=== PATIENT | male | born 1950 | race Caucasian/White ===

== ENCOUNTER 2018-08-24 20:22 | Inpatient (IN) | payer MEDICARE, BC ==
[~2018-08-24] VITALS: Ht 180.3 cm; Wt 81.7 kg
[~2018-08-24 20:22] MED LIST: AMLO-150 PO; DOCU-131 PO; HUM100VI SC; INSU100I13 SQ-INSULIN; PANT40VI IVPush; POLY17PO5 PO; SIME80TA16 PO
[2018-08-24] MEDS ORDERED: SODIUM CHLORIDE 0.9% 1,000 ML IV ONE (20:37)
[2018-08-24] MEDS ORDERED: ONDANSETRON 2MG/ML, 2ML ONE (20:49)
[2018-08-24] MEDS ORDERED: SODIUM CHLORIDE FLUSH 10ML SYR IVF ONE (21:00)
[2018-08-24] MEDS ORDERED: SODIUM CHLORIDE 0.9% 1,000ML IVBOLUS ONE (21:00)
[2018-08-24] MEDS ORDERED: ONDANSETRON 2MG/ML, 2ML IVPush ONE (21:00)
[2018-08-24 21:22] LABS: MEAN CORPUSCULAR HEMOGLOBIN 32.5 pg (27.5-34.5); MEAN CORPUSCULAR VOLUME 95.7 fL (81-97); MEAN PLATELET VOLUME 9.3 fL (7.4-10.4); PLATELET COUNT 276 x10^3/uL (130-400); RED CELL DISTRIBUTION WIDTH 14.6 % (9.4-14.8)
[2018-08-24 21:34] LABS: ALANINE AMINOTRANSFERASE 23 U/L (12-78); ALBUMIN 3.5 g/dL (3.4-5.0); ANION GAP 10 mmol/L (5-15); CALCIUM 9.1 mg/dL (8.5-10.1); CHLORIDE 105 mmol/L (98-107); CREATININE 1.67 mg/dL (0.7-1.3); MD YES
[2018-08-24 21:37] LABS: <PLATELET ESTIMATE> ADEQUATE; <PLT MORPHOLOGY> NORMAL PLT MORPH; <RBC MORPHOLOGY> NORMAL; BAND#(MANUAL) 0.56 x10^3/uL; BANDS%(MANUAL) 4 % (0-7); LYMPH#(MANUAL) 0.28 x10^3/uL (1-3.4); LYMPHS% (MANUAL) 2 % (22-44); SEG#(MANUAL) 13.25 x10^3/uL (1.8-6.8); SEGS% (MANUAL) 94 % (42-75)
[2018-08-24 21:38] LABS: ALKALINE PHOSPHATASE 81 U/L (45-117); BILIRUBIN,TOTAL 0.9 mg/dL (0.2-1.0); TOTAL PROTEIN 6.7 g/dL (6.4-8.2); TROPONIN I < 0.015 ng/mL (0.000-0.045)
[2018-08-24 22:01] LABS: MICROSCOPIC NOT IND
[2018-08-24 22:04] LABS: ACETONE, SERUM Moderate(40mg/dL) mg/dL (Negative)
[2018-08-24 22:12] LABS: CULTURE INDICATED? NO
[2018-08-24] MEDS ORDERED: SODIUM CHLORIDE FLUSH 10ML SYR IVF PRN (23:00)
[2018-08-24] MEDS ORDERED: BISACODYL 10 MG SUPP PR PRN (23:30)
[2018-08-24] MEDS ORDERED: ONDANSETRON ODT 4 MG PO PRN (23:30)
[2018-08-24] MEDS ORDERED: ACETAMINOPHEN 325 MG TABLET PO PRN (23:30)
[2018-08-24 23:36] LABS: HEMOGLOBIN A1C 7.8 % (4.2-6.3)
[2018-08-24 23:58] VITALS: BP 115/66
[2018-08-25 01:15] VITALS: BP 121/69
[2018-08-25] MEDS: SODIUM CHLORIDE 0.9% 1,000 ML IV SCH ×3 (01:42→21:56)
[2018-08-25] MEDS: HEPARIN 5,000 UNITS/ML, 1ML SQ SCH ×3 (03:41→20:11)
[2018-08-25] MEDS: INSULIN LISPRO 100 UNITS/ML, PEN SQ-INSULIN SCH ×4 (03:41→21:53)
[2018-08-25 04:24] VITALS: BP 99/54
[2018-08-25 05:48] LABS: MEAN CORPUSCULAR HEMOGLOBIN 32.5 pg (27.5-34.5); MEAN CORPUSCULAR HGB CONC 34.2 g/dL (33.2-36.2); MEAN CORPUSCULAR VOLUME 95.1 fL (81-97); MEAN PLATELET VOLUME 9.6 fL (7.4-10.4); PLATELET COUNT 247 x10^3/uL (130-400); RED CELL DISTRIBUTION WIDTH 14.8 % (9.4-14.8)
[2018-08-25 05:54] LABS: CHLORIDE 103 mmol/L (98-107)
[2018-08-25 06:04] LABS: ALANINE AMINOTRANSFERASE 22 U/L (12-78); ALKALINE PHOSPHATASE 72 U/L (45-117); ANION GAP 11 mmol/L (5-15); BILIRUBIN,TOTAL 0.9 mg/dL (0.2-1.0); CALCIUM 7.8 mg/dL (8.5-10.1); CREATININE 1.67 mg/dL (0.7-1.3); TOTAL PROTEIN 5.7 g/dL (6.4-8.2)
[2018-08-25 06:12] LABS: BASOPHILS % (AUTO) 0 % (0-1); EOSINOPHILS % (AUTO) 0 % (1-7); LYMPHOCYTES # (AUTO) 0.27 x10^3/uL (1-3.4); LYMPHOCYTES % (AUTO) 3 % (22-44); MD SCAN; MONOCYTES # (AUTO) 0.34 x10^3/uL (0.2-0.8); MONOCYTES % (AUTO) 3 % (2-9); NEUTROPHILS # (AUTO) 9.48 x10^3/uL (1.8-6.8); NEUTROPHILS % (AUTO) 94 % (42-75)
[2018-08-25 06:45] VITALS: BP 102/51
[2018-08-25] MEDS: INSULIN GLARGINE 100 UNITS/ML, PEN SQ-INSULIN SCH ×2 (07:30→21:53)
[2018-08-25] MEDS ORDERED: SODIUM CHLORIDE 0.9% 1,000 ML IV SCH (07:30)
[2018-08-25] MEDS ORDERED: SODIUM POLYSTYRENE SULFONATE ORAL SUSP PO ONE (07:30)
[2018-08-25] MEDS: LEVOTHYROXINE 50 MCG TABLET PO SCH (07:46)
[2018-08-25] MEDS ORDERED: INSULIN GLARGINE 100 UNITS/ML, PEN SQ-INSULIN SCH (08:00)
[2018-08-25] MEDS: AMLODIPINE 5 MG TABLET PO SCH (09:00)
[2018-08-25 11:01] LABS: ANION GAP 10 mmol/L (5-15); CALCIUM 8.2 mg/dL (8.5-10.1); CHLORIDE 105 mmol/L (98-107); CREATININE 1.73 mg/dL (0.7-1.3)
[2018-08-25 12:41] VITALS: BP 109/54
[2018-08-25 20:12] VITALS: BP 104/52
[2018-08-26 01:26] VITALS: BP 94/50
[2018-08-26] MEDS: INSULIN LISPRO 100 UNITS/ML, PEN SQ-INSULIN SCH ×2 (03:26→09:06)
[2018-08-26] MEDS: HEPARIN 5,000 UNITS/ML, 1ML SQ SCH ×2 (03:30→03:31)
[2018-08-26] MEDS: SODIUM CHLORIDE 0.9% 1,000 ML IV SCH (04:39)
[2018-08-26 05:45] LABS: CHLORIDE 109 mmol/L (98-107)
[2018-08-26 05:50] LABS: ALANINE AMINOTRANSFERASE 19 U/L (12-78); ALBUMIN 2.5 g/dL (3.4-5.0); ALKALINE PHOSPHATASE 63 U/L (45-117); ANION GAP 6 mmol/L (5-15); BILIRUBIN,TOTAL 0.5 mg/dL (0.2-1.0); CALCIUM 8.3 mg/dL (8.5-10.1); TOTAL PROTEIN 4.9 g/dL (6.4-8.2)
[2018-08-26 06:01] LABS: BASOPHILS # (AUTO) 0.02 x10^3/uL (0-0.1); BASOPHILS % (AUTO) 0 % (0-1); EOSINOPHILS # (AUTO) 0.12 x10^3/uL (0-0.4); EOSINOPHILS % (AUTO) 2 % (1-7); LYMPHOCYTES # (AUTO) 1.12 x10^3/uL (1-3.4); LYMPHOCYTES % (AUTO) 20 % (22-44); MD NO; MEAN CORPUSCULAR HEMOGLOBIN 32.8 pg (27.5-34.5); MEAN CORPUSCULAR HGB CONC 34.4 g/dL (33.2-36.2); MEAN CORPUSCULAR VOLUME 95.3 fL (81-97); MEAN PLATELET VOLUME 9.6 fL (7.4-10.4); MONOCYTES # (AUTO) 0.67 x10^3/uL (0.2-0.8); MONOCYTES % (AUTO) 12 % (2-9); NEUTROPHILS # (AUTO) 3.64 x10^3/uL (1.8-6.8); NEUTROPHILS % (AUTO) 65 % (42-75); PLATELET COUNT 214 x10^3/uL (130-400); RED BLOOD COUNT 3.65 x10^6/uL (4.38-5.82); RED CELL DISTRIBUTION WIDTH 14.5 % (9.4-14.8)
[2018-08-26] MEDS: LEVOTHYROXINE 50 MCG TABLET PO SCH (06:12)
[2018-08-26] MEDS ORDERED: LEVO50TA PO (08:16)
[2018-08-26] MEDS ORDERED: ONDA4TAB7 PO (08:16)
[2018-08-26] MEDS ORDERED: INSU100I11 SQ-INSULIN (08:18)
[2018-08-26] MEDS: AMLODIPINE 5 MG TABLET PO SCH (09:00)
== END 2018-08-26 09:30 | disposition home or self-care (01) | DRG 682 ==
LOC: ED 20:46 → EDIP 22:53 → 4NOR 23:30 → DCLOUNGE 08-26 09:15
PROVIDERS: ADMIT Internal Medicine; ATTEND Internal Medicine
DX: N17.0 Acute kidney failure with tubular necrosis (principal); R65.11 Systemic inflammatory response syndrome (SIRS) of non-infectious origin with acute organ dysfunction; E03.9 Hypothyroidism, unspecified; D72.829 Elevated white blood cell count, unspecified; E11.22 Type 2 diabetes mellitus with diabetic chronic kidney disease; E86.0 Dehydration; E87.5 Hyperkalemia; N18.9 Chronic kidney disease, unspecified; Z79.4 Long term (current) use of insulin; Z83.3 Family history of diabetes mellitus; Z85.528 Personal history of other malignant neoplasm of kidney; Z89.422 Acquired absence of other left toe(s); Z90.5 Acquired absence of kidney
CPT/HCPCS: 71046; 80048; 80053; 81003; 82010; 82962; 83036; 83690; 83735; 84100; 84484; 85025; 93005; 96361; 96374; G0378; J1644; J2405; Q0162; J1815; J7030

== ENCOUNTER → 2018-10-28 | Outpatient (CLI) | payer MEDICARE, BC ==
[~2018-10-28] MED LIST changes: +INSU100I11 SQ-INSULIN; +LEVO50TA PO; +ONDA4TAB7 PO
== END | disposition home or self-care (01) ==
LOC: CFH 10:06
PROVIDERS: ATTEND Internal Medicine Hematology & Oncology
DX: M48.56XA Collapsed vertebra, not elsewhere classified, lumbar region, initial encounter for fracture (principal); M51.37 Other intervertebral disc degeneration, lumbosacral region; G95.89 Other specified diseases of spinal cord; I25.10 Atherosclerotic heart disease of native coronary artery without angina pectoris; Z90.5 Acquired absence of kidney; Z85.528 Personal history of other malignant neoplasm of kidney
CPT/HCPCS: 71250; 74176

== ENCOUNTER → 2018-12-17 | Outpatient (CLI) | payer MEDICARE, BC | END | disposition home or self-care (01) | LOC: CFH 10:49 | PROVIDERS: ATTEND Internal Medicine Hematology & Oncology | DX: M81.0 Age-related osteoporosis without current pathological fracture (principal); C64.1 Malignant neoplasm of right kidney, except renal pelvis | CPT/HCPCS: 77080 ==

== ENCOUNTER 2019-03-06 15:34 | Outpatient (CLI) | payer MEDICARE, BC | END 2019-03-06 23:59 | disposition home or self-care (01) | LOC: CVU 15:34 | PROVIDERS: ATTEND Nurse Practitioner Family | DX: I08.1 Rheumatic disorders of both mitral and tricuspid valves (principal); E10.9 Type 1 diabetes mellitus without complications | CPT/HCPCS: 93306 ==

== ENCOUNTER 2019-04-28 12:11 | Outpatient (CLI) | payer MEDICARE, BC | END 2019-04-28 23:59 | disposition home or self-care (01) | LOC: CFH 12:11 | PROVIDERS: ATTEND Internal Medicine Hematology & Oncology | DX: C64.1 Malignant neoplasm of right kidney, except renal pelvis (principal); M43.8X6 Other specified deforming dorsopathies, lumbar region; M51.37 Other intervertebral disc degeneration, lumbosacral region; G95.89 Other specified diseases of spinal cord; K42.9 Umbilical hernia without obstruction or gangrene; N32.89 Other specified disorders of bladder; E11.9 Type 2 diabetes mellitus without complications; Z90.5 Acquired absence of kidney | CPT/HCPCS: 71250; 74176 ==

== ENCOUNTER 2019-10-31 08:53 | Outpatient (CLI) | payer MEDICARE, BC | END 2019-10-31 23:59 | disposition home or self-care (01) | LOC: RAD 08:53 | PROVIDERS: ATTEND Internal Medicine Hematology & Oncology | DX: C64.1 Malignant neoplasm of right kidney, except renal pelvis (principal); S32.019A Unspecified fracture of first lumbar vertebra, initial encounter for closed fracture; J84.10 Pulmonary fibrosis, unspecified; M47.817 Spondylosis without myelopathy or radiculopathy, lumbosacral region; G95.89 Other specified diseases of spinal cord; X58.XXXA Exposure to other specified factors, initial encounter; Y93.89 Activity, other specified; Y92.89 Other specified places as the place of occurrence of the external cause; Y99.8 Other external cause status | CPT/HCPCS: 71250; 74176 ==

== ENCOUNTER → 2020-03-15 | Outpatient (CLI) | payer MEDICARE, BC ==
[~2020-03-15] MED LIST changes: +ACET325T26 PO; +INSU100I11 SC; +INSU100I32 SC; +MV-M1TAB16 PO
== END | disposition home or self-care (01) ==
LOC: RAD 11:24
PROVIDERS: ATTEND Nurse Practitioner Family
DX: E21.3 Hyperparathyroidism, unspecified (principal); E11.22 Type 2 diabetes mellitus with diabetic chronic kidney disease; N18.3 Chronic kidney disease, stage 3 (moderate)
CPT/HCPCS: 78070; A9500; 36415; 84100

== ENCOUNTER → 2020-04-12 | Outpatient (CLI) | payer MEDICARE, BC | END | disposition home or self-care (01) | LOC: CFH 12:14 | PROVIDERS: ATTEND Internal Medicine Hematology & Oncology | DX: C64.1 Malignant neoplasm of right kidney, except renal pelvis (principal); J84.10 Pulmonary fibrosis, unspecified; Z90.5 Acquired absence of kidney | CPT/HCPCS: 71250; 74176 ==

== ENCOUNTER → 2020-07-15 | Outpatient (CLI) | payer MEDICARE, BC ==
[~2020-07-15] MED LIST changes: +LEVO50TA5 PO; +MEMA10TA PO; +TRAM50TA2 PO; +tylenol PO
[2020-07-15 12:39] LABS: BASOPHILS % (AUTO) 2 % (0-1); EOSINOPHILS % (AUTO) 0 % (1-7); LYMPHOCYTES % (AUTO) 27 % (22-44); MEAN CORPUSCULAR HEMOGLOBIN 31.3 pg (27.5-34.5); MEAN CORPUSCULAR HGB CONC 32.8 g/dL (33.2-36.2); MEAN PLATELET VOLUME 8.1 fL (7.4-10.4); MONOCYTES % (AUTO) 13 % (2-9); NEUTROPHILS % (AUTO) 58 % (42-75); PLATELET COUNT 407 x10^3/uL (130-400); RED BLOOD COUNT 4.05 x10^6/uL (4.38-5.82); RED CELL DISTRIBUTION WIDTH 14.2 % (9.4-14.8)
[2020-07-15 12:40] LABS: MD NO
[2020-07-15 12:48] LABS: ALBUMIN 3.8 g/dL (3.4-5.0); CALCIUM 9.6 mg/dL (8.5-10.1); CHLORIDE 107 mmol/L (98-107)
[2020-07-15 12:56] LABS: ALANINE AMINOTRANSFERASE 35 U/L (12-78); ALKALINE PHOSPHATASE 101 U/L (45-117); BILIRUBIN,TOTAL 0.5 mg/dL (0.2-1.0); CREATININE 1.26 mg/dL (0.7-1.3); TOTAL PROTEIN 7.1 g/dL (6.4-8.2)
[2020-07-15 13:17] LABS: ANION GAP 4 mmol/L (5-15)
== END | disposition home or self-care (01) ==
LOC: STAR 10:39
PROVIDERS: ATTEND Surgery
DX: Z01.812 Encounter for preprocedural laboratory examination (principal); Z20.828 Contact with and (suspected) exposure to other viral communicable diseases
CPT/HCPCS: 36415; 80053; 85025; 87635

== ENCOUNTER 2020-07-19 06:40 | Day surgery (SDC) | payer MEDICARE, BC ==
[2020-07-15 11:55] VITALS: BP 145/74
[~2020-07-19] VITALS: Ht 180.3 cm; Wt 72.0 kg
[2020-07-19 07:16] VITALS: BP 145/74
[2020-07-19] MEDS ORDERED: METHOCARBAMOL 1,000 MG in DEXTROSE 5% 100 ML IV PRN (07:30)
[2020-07-19] MEDS ORDERED: HALOPERIDOL 5 MG/ML IV PRN (07:30)
[2020-07-19] MEDS ORDERED: CHLORHEXIDINE 15 ML UDC MM ONE (07:30)
[2020-07-19] MEDS ORDERED: OXYcodone 5 MG/5 ML ORAL.SOL UDC PO PRN (07:30)
[2020-07-19] MEDS ORDERED: LACTATED RINGERS 1,000 ML IV SCH (07:30)
[2020-07-19] MEDS ORDERED: hydrALAzine 20 MG/ML, 1ML IV PRN (07:30)
[2020-07-19] MEDS ORDERED: MEPERIDINE/PF 25MG/0.5ML IVPush PRN (07:30)
[2020-07-19] MEDS ORDERED: KETOROLAC 30 MG/1 ML IV PRN (07:30)
[2020-07-19] MEDS ORDERED: ACETAMINOPHEN 325 MG TABLET PO PRN (07:30)
[2020-07-19] MEDS ORDERED: FENTANYL PF 100 MCG/2ML IV PRN (07:30)
[2020-07-19] MEDS ORDERED: HYDROmorphone 1 MG/ML, 1ML INJ IVPush PRN (07:30)
[2020-07-19] MEDS ORDERED: LABETALOL 5MG/ML, 20ML IV PRN (07:30)
[2020-07-19] MEDS ORDERED: FENTANYL PF 250 MCG/5ML ONE (08:03)
[2020-07-19] MEDS ORDERED: CEFAZOLIN 1,000 MG ONE (08:08)
[2020-07-19] MEDS ORDERED: DEXAMETHASONE 4 MG/ML, 1ML ONE (08:08)
[2020-07-19] MEDS ORDERED: ONDANSETRON 2MG/ML, 2ML ONE (08:08)
[2020-07-19] MEDS ORDERED: PROPOFOL 10 MG/ML, 20ML ONE (08:08)
[2020-07-19] MEDS ORDERED: LIDOCAINE PF 2%, 5ML ONE (08:08)
[2020-07-19] MEDS ORDERED: PROPOFOL 50 ML ONE (08:29)
[2020-07-19] MEDS ORDERED: FENTANYL PF 100 MCG/2ML ONE (08:57)
[2020-07-19 09:17] LABS: 5MIN %DROP IOPTH 52 %; IOPTH BASELINE 263 pg/mL
[2020-07-19 09:18] LABS: 10MIN %DROP IOPTH 64 %
[2020-07-19] MEDS ORDERED: INSULIN REGULAR 100 UNITS/ML, 3ML VIAL SQ-INSULIN ONE (09:30)
[2020-07-19] MEDS ORDERED: INSULIN SINGLE DOSE, ER ONE ×2 (09:30→10:56)
[2020-07-19] MEDS ORDERED: INSULIN REGULAR 100 UNITS/ML, 3ML VIAL SQ-INSULIN STA (10:48)
== END 2020-07-19 12:40 | disposition home or self-care (01) ==
LOC: OUT 06:40
PROVIDERS: ATTEND Surgery
DX: E21.0 Primary hyperparathyroidism (principal); E11.9 Type 2 diabetes mellitus without complications; M81.0 Age-related osteoporosis without current pathological fracture; Z79.899 Other long term (current) drug therapy; Z98.890 Other specified postprocedural states; Z79.4 Long term (current) use of insulin; Z85.528 Personal history of other malignant neoplasm of kidney
CPT/HCPCS: 60500; 82962; 83970; 88305; 88331; C1760; J0690; J1100; J1815; J2405; J2704; J3010; J7120

== ENCOUNTER 2020-09-13 17:07 | Emergency (ER) | payer MEDICARE, BC ==
[~2020-09-13] VITALS: Ht 180.3 cm; Wt 76.8 kg
[2020-09-13] MEDS ORDERED: SODIUM CHLORIDE FLUSH 10ML SYR IVF ONE (17:30)
[2020-09-13 17:54] LABS: BASOPHILS % (AUTO) 0 % (0-1); EOSINOPHILS % (AUTO) 0 % (1-7); LYMPHOCYTES % (AUTO) 2 % (22-44); MEAN CORPUSCULAR HEMOGLOBIN 31.5 pg (27.5-34.5); MEAN CORPUSCULAR HGB CONC 33.9 g/dL (33.2-36.2); MEAN PLATELET VOLUME 8.3 fL (7.4-10.4); MONOCYTES % (AUTO) 1 % (2-9); NEUTROPHILS % (AUTO) 97 % (42-75); PLATELET COUNT 294 x10^3/uL (130-400); RED BLOOD COUNT 4.29 x10^6/uL (4.38-5.82); RED CELL DISTRIBUTION WIDTH 13.9 % (9.4-14.8)
[2020-09-13 18:05] LABS: ALANINE AMINOTRANSFERASE 21 U/L (12-78); ALBUMIN 3.7 g/dL (3.4-5.0); ANION GAP 6 mmol/L (5-15); CALCIUM 8.4 mg/dL (8.5-10.1); CHLORIDE 99 mmol/L (98-107); CREATININE 1.46 mg/dL (0.7-1.3)
[2020-09-13 18:08] LABS: ALKALINE PHOSPHATASE 101 U/L (45-117); BILIRUBIN,TOTAL 0.5 mg/dL (0.2-1.0); TOTAL PROTEIN 6.9 g/dL (6.4-8.2)
[2020-09-13 18:16] LABS: MD SCAN
[2020-09-13 19:36] LABS: MICROSCOPIC AUTO
[2020-09-13] MEDS ORDERED: CEFTRIAXONE PMX 1GM/50ML 50 ML IVPB ONE (20:00)
[2020-09-13] MEDS ORDERED: CEFTRIAXONE PMX 1GM/50ML 50 ML ONE (20:03)
[2020-09-13 20:55] VITALS: BP 132/67
--- NOTE | 2020-09-13 21:05 | NUR ---
report from brady serrato assumed care of pt at this time
== END 2020-09-13 21:49 | disposition home or self-care (01) ==
LOC: ED 21:30
DX: R50.9 Fever, unspecified (principal); Z20.828 Contact with and (suspected) exposure to other viral communicable diseases; M79.10 Myalgia, unspecified site; I10 Essential (primary) hypertension; E11.9 Type 2 diabetes mellitus without complications
CPT/HCPCS: 36415; 71045; 80053; 81001; 85025; 87040; 87635; 96365; 99284; J0696